=== PATIENT | female | born 1940 | race Caucasian/White ===

== ENCOUNTER → 2017-02-21 | Outpatient (CLI) | payer OTHER, BC ==
--- NOTE | ~2017-02-21 | S ---
[facility] [place] [address] SURGICAL PATH RPT PROCEDURE Name: TARSHA DEJESUS Room #: [facility].#: [id number] Admission: 02/21/17 Date of : 38 Discharge: Report #: [id number] Path Case #: [id number] PATHOLOGY REPORT COLLECTION DATE: 02/21/2017 RECEIVED DATE: 02/21/2017 SUBMITTING PHYS: Dr. Mayank Calles OTHER PHYS: Dr. Lori Mcdonald SPECIMEN(S) RECEIVED: A.Rt breast mass 6 o'clock * * * * * * * * * * * * FINAL DIAGNOSIS: "Right breast mass 6 o'clock," needle biopsy: - INVASIVE DUCTAL CARCINOMA, MODERATELY DIFFERENTIATED, GRADE II, WITH SOLID AND CRIBRIFORM FEATURES AND MICROCALCIFICATIONS PRESENT, MEASURING 1.8 CM ON THE SLIDE. (SEE COMMENT) COMMENT: Specimen type: Needle biopsy Tumor site: Right breast mass 6:00 Tumor quantitation: Involving both cores, longest contiguous focus measuring 1.8 cm on the slide Histologic type: Invasive ductal carcinoma Histologic grade: Grade II, moderately differentiated Tubules, nuclei and mitoses: Tubule score-3, nuclei score-2, mitoses score-2 LVSI: Not identified Microcalcifications: Present Markers: ER, VA, Her-2/george, Ki-67 Block: A1 Properly controlled immunohistochemical stains are performed. (Block A1) Smooth muscle myosin: loss of myoepithelial cells P63: loss of myoepithelial cells The case is co-reviewed with Dr. Zamzam Holliday. The case is discussed with Mike in the [facility] on 02/24/17 at 11:45 a.m. (CLW:mgpaulina; d/t: 02/24/17) PATHOLOGIST: Rupal Marino M.D. REPORT ELECTRONICALLY SIGNED BY: Rupal Marino M.D. DATE/TIME: 02/24/2017 16:57 * * * * * * * * * * * * [facility] [place] [address] SURGICAL PATH RPT PROCEDURE Name: TARSHA DEJESUS Room #: REG [facility].#: [id number] Admission: 02/21/17 Date of : 38 Discharge: Report #: [id number] Path Case #: [id number] GROSS PATHOLOGY: Received in formalin labeled "Tarsha Dejesus, right breast 6:00," are multiple needle cores of yellow-gordon fibrofatty tissue measuring 2.4 cm in aggregate dimensions. The tissue is submitted in its entirety in cassette A1. The cold ischemic time is 1 minute. The total formalin fixation time is 32 hours. ([facility]; 02/22/2017) CLINICAL HISTORY: Post right breast mass on mammogram, 6 cm INITIAL CPT CODE(S): A; 78511, 83487, 49703, 37575(4) Professional services performed by [facility] at [address], [place] [address] Technical services performed by [facility] at [address] [place] [address], [address], [place] [address]. [facility] [address] [place] [address] PHONE: [phone] DIRECTOR: Henry Franklin M.D. * * * END OF REPORT * * *
== END | disposition home or self-care (01) ==
LOC: ULTRA 12:09
DX: N63 Unspecified lump in breast (principal)